=== PATIENT | male | born 1960 | race African-American/Black ===

== ENCOUNTER 2024-06-13 12:10 | Emergency (ER) | payer OTHER, SELFPAY ==
[2024-06-13] VITALS (9 sets, daily range): BP systolic 148–179; BP diastolic 74–104; BMI 34.2
[2024-06-13 12:24] LABS: % Basophils 0.6 % (0-2); % Eosinophils 2.6 % (0-6); % Immature Granulocytes 0.3 % (0-0.5); % Lymphocytes 34.9 % (20.5-51.1); % Monocytes 8.7 % (1.7-9.3); % Neutrophils 52.9 % (42.2-75.2); Absolute Eosinophils 0.2 10^3/uL (0-0.7); Absolute Lymphocytes 2.2 10^3/uL (1.2-3.4); Absolute Monocytes 0.6 10^3/uL (0.1-0.6); Absolute Neutrophils 3.4 10^3/uL (1.4-6.5); Hematocrit 38.7 % (39.0-52.0); Hemoglobin 12.9 g/dL (13.0-18.0); Mean Corp Hgb Conc. 33.3 g/dL (33.0-37.0); Mean Corpuscular Hgb 29.6 pg (27.0-31.0); Mean Corpuscular Volume 88.8 fL (80.0-94.0); Mean Platelet Volume 10.5 fL (7.4-10.4); Nucleated Red Blood Cells % 0 % (-); Platelet Count 234 10^3/uL (130-400); Red Blood Cell Count 4.36 10^6/uL (4.70-6.10); Red Cell Dist. Width 13.9 % (11.5-14.5); White Blood Cell Count 6.4 10^3/uL (4.8-10.8)
[2024-06-13 12:42] LABS: ALT (SGPT) 38 U/L (0-50); AST (SGOT) 32 U/L (17-59); Albumin 4.3 g/dl (3.5-5.0); Alkaline Phosphatase 69 U/L (38-126); Blood Urea Nitrogen 13 mg/dl (9-20); Carbon Dioxide 29 mmol/L (22-30); Chloride 102 mmol/L (98-107); Estimated Creatinine Clearance 119 ml/min; Glucose 93 mg/dl (70-99); Potassium 4.1 mmol/L (3.5-5.1); Sodium 138 mmol/L (135-145); Total Bilirubin 0.5 mg/dl (0.2-1.3); Total Protein 7.5 g/dl (6.3-8.2); eGFR > 60.00
--- NOTE | 2024-06-13 12:51 | ED.GENMED ---
History of Present Illness
General
Chief Complaint: Chest Pain
Time Seen by Provider: 06/13/24 12:21
History of Present Illness
History of Present Illness:
64-year-old male with history of hypertension, hyperlipidemia presenting to the emergency department for chest pain. Patient presents from [facility] facility. He notes about an hour prior to arrival he was sitting down had left-sided chest
pain. Denies radiation of the pain. Pain is described as a stabbing pain. He refused nitroglycerin at the facility, because he reports that it has made him feel unwell in the past. Does note that he has suffered from chest pain in the past,
denies known blockages in his heart, however is not completely sure on his medical history. We did receive fentanyl and route to the hospital and notes that that did improve some of his pain. At onset of symptoms, does report that he felt
nauseous. Denies any difficulty breathing. Denies abdominal pain. Denies fever or cough. Denies additional acute medical complaints
Phy Exam
Physical Exam
Physical Exam:
General: Well-appearing, no clinical signs of dehydration, nontoxic and in no acute distress
HEENT: protecting airway
Neck: appears supple
CV: Normal heart rate, regular rhythm
Resp: No accessory muscle use, no increased work of breathing, lungs clear to auscultation bilaterally
Abd: Soft and non-distended, no tenderness to palpation
Extremities: No deformities, no swelling, no erythema
Neuro: alert, no focal neurologic deficit
: deferred
Rectal: deferred
Psych: Normal affect
Skin: Intact
Scores
Heart Score for Chest Pain Patients
STEMI patient?: No
History: Slightly or Non-Suspicious
ECG: Nonspecific Repolarization
Age: >/= 65 years
Risk Factors: 1 or 2 Risk Factors
Troponin: </= Normal Limit
Heart Score for Chest Pain Patients: 4
Heart Score Risk: 20.3% MACE over next 6 weeks
Course
Orders/Labs/Results
Orders:
Orders
06/13/24 12:14
Electrocardiogram (*1) Urgent
Reason for Study: Chest Pain
Cardiac Monitoring- Treatment ONCE
EKG- Treatment ONCE
IV Insert/Care/Rem.- Treatment PRN
O2 Therapy [RESP] Urgent
Titrate/Wean O2 to maintain O2 sat greater than (%): 90
Special Instructions: Maintain sats >/=90%
Pulse Ox/spot Check [RESP] Urgent
Quantity: 1
Special Instructions: ON ROOM AIR
06/13/24 12:15
Complete Blood Count/With Diff Urgent
Comprehensive Metabolic Panel Urgent
Troponin I Urgent
06/13/24 13:28
EKG- Treatment ONCE
06/13/24 14:06
Troponin I Urgent
06/13/24 15:00
Electrocardiogram (*1) Urgent
Reason for Study: Chest Pain
Abnormal Lab Results
06/13/24
12:15
RBC 4.36 L 10^6/uL
(4.70-6.10)
Hgb 12.9 L g/dL
(13.0-18.0)
Hct 38.7 L %
(39.0-52.0)
MPV 10.5 H fL
(7.4-10.4)
06/13/24 12:15
06/13/24 12:15
Vital Signs
Initial and Last Documented VS:
Initial Vital Signs
Temp Pulse Resp BP Pulse Ox
98.2 F 80 14 157/79 94
06/13/24 12:13 06/13/24 12:13 06/13/24 12:13 06/13/24 12:13 06/13/24 12:13
Last Documented Vital Signs
Temp Pulse Resp BP Pulse Ox
98 F 79 18 179/93 95
06/13/24 12:15 06/13/24 15:00 06/13/24 15:00 06/13/24 15:00 06/13/24 15:00
MDM/Problems Addressed
MDM/Problems Addressed:
64-year-old male with history of hypertension hyperlipidemia presenting to the emergency department for chest pain, which started prior to arrival. Vital signs on arrival are significant for mild hypertension.
On exam, patient is resting comfortably, no acute distress. Patient is still having some pain. He did receive aspirin prior to arrival. EKG obtained on arrival, which is abnormal, lateral T wave inversions, no prior for comparison. Patient does
have coronary risk factors. For this reason we will obtain laboratory analysis including troponin. Patient is refusing nitro. Will continue to closely monitor
13:20 - Initial troponin is undetectable. Will plan for repeat troponin and EKG at 3-hour time interval.
15:20 -repeat EKG is unchanged. Second troponin is undetectable. Patient continues to rest comfortably, no acute distress. Feel stable for discharge with close interval follow-up with cardiology. Return precautions discussed and patient
verbalized understanding
*EKG
Interpreted by ED Provider?: Yes
EKG Intrepretation Date: 06/13/24
EKG Intrepretation Time: 12:54
Interpretation: abnormal
Comparison EKG: no comparison EKG present
Heart Rate: 80
Rate: normal
Rhythm: sinus
Jay: normal axis
Interval: normal interval
QRS Pattern: normal QRS
Ischemia: T-wave inversion (laterally)
*Critical Care Note
Total Time (30-74mins, 75-104mins- exclusive of procedures): Not Applicable
ED Attending Note
-
Portions of this chart may have been created with voice recognition software.� Occasional wrong word or��sound alike� substitutions may have occurred due to the inherent limitations of voice recognition software.
Discharge Plan
Departure
Prescriptions:
No Action
fluticasone propion-salmeterol [Advair Diskus] 250-50 mcg/dose Blister With Device
1 inh INHALATION BID
atorvastatin 20 mg Tablet
20 mg PO HS
hydrochlorothiazide 25 mg Tablet
25 mg PO DAILY
latanoprost 0.005 % Drops
1 drp OPHTHALMIC (EYE) HS
lisinopril 30 mg Tablet
30 mg PO DAILY
tramadol 50 mg Tablet
50 mg PO BID PRN (Reason: moderate pain)
albuterol sulfate 2.5 mg /3 mL (0.083 %) Solution For Nebulization
2.5 mg INHALATION Q6HPRN PRN (Reason: sob)
Theragen Tablet
1 tab PO DAILY
amlodipine 5 mg Tablet
5 mg PO DAILY
aspirin 81 mg Tablet,Chewable
81 mg PO DAILY
calcium carbonate [Calcium 500] 500 mg calcium (1,250 mg) Tablet,Chewable
500 mg PO TIDPRN PRN (Reason: reflux)
docusate sodium 100 mg Tablet
100 mg PO BIDPRN PRN (Reason: constipation)
Referrals:
[facility] [Family Provider] -
Interventions
Interventions:
*Risk Screen - Suicide Last Done: 06/13/24 12:24
*General Assessment Last Done: 06/13/24 12:24
*Neglect/Abuse Screening Last Done: 06/13/24 13:39
*ED- Fall Risk Assessment Last Done: 06/13/24 12:24
*ED COVID-19 Vaccine History Last Done: 06/13/24 12:24
ED- Cardiac Assessment Last Done: 06/13/24 13:33
Discharge Date and Time
Print Language: INDONESIAN
[2024-06-13 12:52] LABS: Troponin I < 0.012 ng/ml
[2024-06-13 14:41] LABS: Troponin I < 0.012 ng/ml
== END 2024-06-13 15:32 | disposition home or self-care (01) ==
LOC: EMR 12:10
PROVIDERS: EMERGENCY PHYSICIAN Student in an Organized Health Care Education/Training Program
DX: R07.89 Other chest pain (principal); I10 Essential (primary) hypertension; E78.5 Hyperlipidemia, unspecified
CPT/HCPCS: 99284; 80053; 84484; 85025; 93005

== ENCOUNTER 2024-07-06 12:28 | Emergency (ER) | payer OTHER, SELFPAY ==
[2024-07-06 12:37] VITALS: BP 147/75
[2024-07-06 12:43] LABS: Glucose - Point of Care 94 mg/dl (70-99)
[2024-07-06 12:45] VITALS: BMI 33.2
--- NOTE | 2024-07-06 13:07 | ED.MUSCINJ ---
HPI-Injury
General
Chief Complaint: Musculo-Skeletal Complaint
Source: patient
Exam Limitations: none
Time Seen by Provider: 07/06/24 12:49
Nursing documentation reviewed up to this point in time: agreed with
History of Present Illness-Injury
Initial Injury comments:
64-year-old male prisoner from [facility] to presents via EMS with hard neck collar on reportedly from a slip and fall in the common room of the custodial. He states he has neck pain, low back pain, left elbow pain and pain in
the left thigh. He denies loss of conscious. He is not anticoagulated.
Past History
Past History
ED Past Medical History: COPD and HTN
ED Past Surgical History: Orthopedic (Right knee replacement, bilateral hip replacement)
Review of Systems
Review of Systems
Allergies reviewed?: Yes
All Other Systems: ROS reviewed and negative except as documented in HPI and ROS
Respiratory: Denies trouble breathing
Cardiac: Denies chest pain
ABD/GI: Denies abdominal pain or nausea
: Denies incontinence
Musculoskeletal: Reports neck pain, back pain and other (Pain left elbow and left thigh.)
Skin: Reports no symptoms
Neurological: Reports no symptoms
Phy Exam
Physical Exam
Physical Exam:
GENERAL: No acute distress. A&Ox3.
CONSTITUTIONAL: Afebrile.
EYES: clear, conjunctivae normal
ENMT: moist mucus membranes
RESPIRATORY: Regular respirations, nonlabored, lungs clear.
CARDIOVASCULAR: Regular rate and rhythm, no murmurs, no rubs.
GI: Soft, nontender, normal BS
MUSCULOSKELETAL: Tender to palpate all areas posterior neck, tender to palpate mid low back, tender to palpate left elbow, left lower extremity with no significant tenderness. No swelling noted to any of these areas. Moves with ease. Well perfused.
SKIN: Warm, dry, normal
PSYCH: Normal mood and affect. Well kept, interactive and appropriate
NEUROLOGIC: Awake, alert and oriented. No focal neurological deficits
Injury Course
Orders/Labs/Results
Orders:
Orders
07/06/24 12:49
CR Cervical Spine 2 or 3 Vw Urgent
Reason For Exam: fall,neck pain. Cross table lat to clear first
07/06/24 12:54
Elbow, Left [CR Elbow - Left Min 3 Views ] Urgent
Comment:
Reason For Exam: pain after fall
Hip, Left 2-3 Views [CR Hip - LT w/wo Pel 2-3 Vw*] Urgent
Comment:
Reason For Exam: pain after fall
Include a pelvis x-ray?: No
Lumbar Spine, 2 or 3 View [CR Lumbar Spine 2 Or 3 Views] Urgent
Comment:
Reason For Exam: pain after fall
MDM/Problems Addressed
MDM/Problems Addressed:
64-year-old male prisoner from [facility] to presents via EMS with hard neck collar on reportedly from a slip and fall in the common room of the custodial. He states he has neck pain, low back pain, left elbow pain and pain in
the left thigh. He denies loss of conscious. He is not anticoagulated.
3:30 PM:
Lumbar spine, cervical spine, left shoulder x-rays reports from radiology read: No acute fractures
X-ray of left elbow radiology report read: IMPRESSION: Osteoarthritis.
No definitive acute fractures noted. However, findings suggesting a joint effusion. Therefore occult fracture cannot be excluded.
ED Attending Note
-
Portions of this chart may have been created with voice recognition software.� Occasional wrong word or��sound alike� substitutions may have occurred due to the inherent limitations of voice recognition software.
Discharge Plan
Departure
Prescriptions:
No Action
fluticasone propion-salmeterol [Advair Diskus] 250-50 mcg/dose Blister With Device
1 inh INHALATION BID
atorvastatin 20 mg Tablet
20 mg PO HS
hydrochlorothiazide 25 mg Tablet
25 mg PO DAILY
latanoprost 0.005 % Drops
1 drp OPHTHALMIC (EYE) HS
lisinopril 30 mg Tablet
30 mg PO DAILY
tramadol 50 mg Tablet
50 mg PO BID PRN (Reason: moderate pain)
albuterol sulfate 2.5 mg /3 mL (0.083 %) Solution For Nebulization
2.5 mg INHALATION Q6HPRN PRN (Reason: sob)
Theragen Tablet
1 tab PO DAILY
amlodipine 5 mg Tablet
5 mg PO DAILY
aspirin 81 mg Tablet,Chewable
81 mg PO DAILY
calcium carbonate [Calcium 500] 500 mg calcium (1,250 mg) Tablet,Chewable
500 mg PO TIDPRN PRN (Reason: reflux)
docusate sodium 100 mg Tablet
100 mg PO BIDPRN PRN (Reason: constipation)
Referrals:
[facility] [Family Provider] -
Interventions
Interventions:
*Risk Screen - Suicide Last Done: 07/06/24 12:37
*General Assessment Last Done: 07/06/24 12:37
*Neglect/Abuse Screening Last Done: 07/06/24 12:37
*ED- Fall Risk Assessment Last Done: 07/06/24 12:37
*ED COVID-19 Vaccine History Last Done: 07/06/24 13:57
ED-Musculoskeletal Assessment Last Done: 07/06/24 12:37
Discharge Date and Time
Print Language: NAMIBIAN
== END 2024-07-06 17:06 ==
LOC: EMR 12:28
PROVIDERS: EMERGENCY PHYSICIAN Student in an Organized Health Care Education/Training Program
DX: M79.652 Pain in left thigh (principal); M25.522 Pain in left elbow; M54.2 Cervicalgia; M54.50 Low back pain, unspecified; M25.562 Pain in left knee; W01.0XXA Fall on same level from slipping, tripping and stumbling without subsequent striking against object, initial encounter; Y92.148 Other place in prison as the place of occurrence of the external cause; I10 Essential (primary) hypertension; M19.022 Primary osteoarthritis, left elbow; J44.89 Other specified chronic obstructive pulmonary disease; E11.9 Type 2 diabetes mellitus without complications; Z96.651 Presence of right artificial knee joint; Z96.643 Presence of artificial hip joint, bilateral
CPT/HCPCS: 99284; 29105; 72040; 72100; 73080; 73502; 82962